=== PATIENT | female | born 1950 | race Caucasian/White ===

== ENCOUNTER 2018-11-09 11:22 | Emergency (ER) | payer MEDICARE, BC ==
--- NOTE | 2018-11-09 13:56 | UC ---
- HPI Summary HPI Summary: Pt. is a 68 y.o female who presents to the ER for bloody drainage from left nipple x 1 week. Pt. states she has been noticing a small amount of blood in the left side of her bra x 1 week. Pt. initially thought maybe she had a scratch on her breast that was bleeding but then she squeezed her nipple and a bloody drainage came out. Pt. denies breast tenderness. She notes areola looks a bit redder to her and she felt a small lump to right of her nipple. Past hx of thyroid nodule and cervical ca in 's. Pt. notes partial hysterectomy. Symptoms are moderate in severity. No current modifying factors. Pt. denies fever, chills, abd. pain, CP, SOB. Pt. notes she is visiting family in the area and resides in [place]. Pt. states she already notified her DAIRY SPECIALIST in [place] of problem. - Allergy/Home Medications Allergies/Adverse Reactions: Allergies Allergy/AdvReac Type Severity Reaction Status Date / Time No Known Allergies Allergy Verified 11/09/18 11:31 PMH/Surg Hx/FS Hx/Imm Hx Previously Healthy: Yes - Family History Known Family History: Positive: Non-Contributory - Social History Occupation: Retired Lives: With Family Review of Systems All Other Systems Reviewed And Are Negative: Yes Constitutional: Positive: Negative. Negative: Fever, Chills Skin: Positive: Negative Respiratory: Positive: Negative Cardiovascular: Positive: Negative Gastrointestinal: Positive: Negative Is Patient Immunocompromised?: No Physical Exam Triage Information Reviewed: Yes Appearance: Well-Appearing - Pt. sitting on bed in [facility]> Family present. Vital Signs: Initial Vital Signs Temp 98.9 F 11/09/18 11:29 Pulse 66 11/09/18 11:29 Resp 16 11/09/18 11:29 BP 168/79 11/09/18 11:29 Pulse Ox 98 11/09/18 11:29 Eye Exam: Normal Eyes: Positive: Conjunctiva Clear Neck: Positive: Supple Respiratory: Positive: Lungs clear, Normal breath sounds Cardiovascular: Positive: RRR, No Murmur Musculoskeletal Exam: Normal Psychological Exam: Normal Skin Exam: Other - Breast: Breast exam performed with radioisotope technicianMaria Del Carmen bray. Left breast without erythema. Small pea size nodule noted to the right of areola. No nipple drainage. No cervical, clavicular or axiallary lymph nodes palpated. Breast Pain Course/Dx - Course Course Of Treatment: Pt. presenting with left nipple discharge. Afebrile and well appearing. No signs of infection on exam. She does have a small palpable mass on exam. Basic labs and u/s ordered. Labs unremarkable. Breast U/S per radiology: In the retroareolar region there is a dilated duct noted. There appears to be a filling defect in the dilated duct. This may represent a papilloma. Biopsy is suggested. IMPRESSION: There is a dilated retroareolar duct with soft tissue appearance within the duct. The possibility of a papilloma should BE considered. Biopsy should BE considered. BI-RADS: 4, suspicious U/S discussed with pt. Pt. notes she is visiting with family in the [place] for the next week before returning to [place]. Discussed with pt. she will need a biopsy for further evaluation. Offered pt. f.u in [place] but she prefers to f.u with her DAIRY SPECIALIST in [place], Dr. Ahn. Attempted to touch base with Dr. Ahn but she is out of the office today. I did speak with her nurse, Amirah. Will fax U/S report and ER note, . Pt. to schedule an apt. with her DAIRY SPECIALIST [facility] for referral to surgery for biopsy. Pt. also provided with our local DAIRY SPECIALIST and the [facility]. Will return to ER if sxs change or worsen. Pt. understands and agrees with plan. - Differential Diagnoses Differential Diagnosis/HQI/PQRI: Breast Abscess, Breast Mass, Candidia Dermatitis, Fibrocystic Breast Disease, Mastitis - Diagnoses Provider Diagnoses: Breast mass, Nipple discharge Discharge - Sign-Out/Discharge Documenting (check all that apply): Patient Departure Patient Received Moderate/Deep Sedation with Procedure: No - Discharge Plan Condition: Good Disposition: HOME Patient Education Materials: Breast Mass (ED), Nipple Discharge (ED) Referrals: [facility] [Outside] Additional Instructions: Schedule an appointment with your [employer] [facility]HER, Dr. Ahn, as soon as possible You will need to be referred to surgery for biopsy Ultrasound report and ER note faxed to their office Can also follow up with DAIRY SPECIALIST in [place] or the [facility] (INFO below ) Return to ER if symptoms change or worsen - Billing Disposition and Condition Condition: GOOD Disposition: Home
[2018-11-09 14:35] LABS: ABS Basophils 0.1 10^3/ul (0-0.2); ABS Eosinophils 0.1 10^3/ul (0-0.6); ABS Lymphocytes 2.5 10^3/ul (1.0-4.8); ABS Monocytes 0.3 10^3/ul (0-0.8); ABS Neutrophils 2.6 10^3/ul (1.5-7.7); Eosinophil % 1.6 %; Hematocrit 40 % (35-47); Hemoglobin 13.6 g/dL (12.0-16.0); Mean Corpuscular HGB Conc 34 g/dL (31-36); Mean Corpuscular Hemoglobin 31 pg (27-31); Mean Corpuscular Volume 91 fL (80-97); Mean Platelet Volume 6.8 fL (7.4-10.4); Nucleated Red Blood Cells % 0.1; Platelet Count 287 10^3/uL (150-450); Red Cell Distribution Width 13 % (10.5-15); White Blood Count 5.6 10^3/uL (3.5-10.8)
[2018-11-09 14:48] LABS: Albumin 4.3 g/dL (3.2-5.2); Albumin/Globulin Ratio 1.6 (1-3); BUN/Creatinine Ratio 15.5 (8-20); C Reactive Protein 2.79 mg/L (<8.01); Calcium 9.6 mg/dL (8.6-10.3); EGFR African American 69.3 (>60); EGFR Non-African American 57.3 (>60); Globulin 2.7 g/dL (2-4); Total Bilirubin 0.6 mg/dL (0.2-1.0)
[2018-11-09 16:00] VITALS: BP 0/0
== END 2018-11-09 15:58 | disposition home or self-care (01) ==
LOC: ED 11:22
DX: N63.0 Unspecified lump in unspecified breast (principal); N64.52 Nipple discharge
CPT/HCPCS: 36415; 80053; 85025; 86140; 99282